=== PATIENT | female | born 1935 | race Two or more races ===

== ENCOUNTER → 2016-05-20 | Outpatient (CLI) | payer OTHER ==
[~2016-05-20] MED LIST: ACETAMINOPHEN 325 MG TAB ONE; diphenhydrAMINE 25 MG CAP PO ONE
[2016-05-20 10:59] LABS: % IMMATURE GRANULOCYTES 1.6 % (0.0-1.1); ABSOLUTE IMMATURE GRANULOCYTES 0.03 10^3/uL (0-0.10); HEMATOCRIT 21.3 % (38.0-47.0); HEMOGLOBIN 6.9 g/dL (12.6-16.3); MEAN CELL HEMOGLOBIN 33.5 pg (27.9-34.1); MEAN CELL HEMOGLOBIN CONC. 32.4 g/dL (32.4-36.7); MEAN CELL VOLUME 103.4 fL (81.5-99.8); MEAN PLATELET VOLUME 10.6 fL (8.7-11.7); RED BLOOD CELL COUNT 2.06 10^6/uL (4.18-5.33); RED CELL DISTRIBUTION WIDTH 15.4 % (11.5-15.2)
[2016-05-20 11:42] LABS: ALANINE AMINOTRANSFERASE 21 IU/L (9-52); ALBUMIN 3.4 g/dL (3.5-5.0); ALKALINE PHOSPHATASE 80 IU/L (38-126); ANION GAP 10 mEq/L (8-16); ASPARTATE AMINOTRANSFERASE 22 IU/L (14-46); BILIRUBIN,TOTAL 0.5 mg/dL (0.1-1.4); CALCIUM 8.8 mg/dL (8.5-10.4); CARBON DIOXIDE 25 mEq/l (22-31); CHLORIDE 105 mEq/L (97-110); CREATININE 0.9 mg/dL (0.6-1.0); GLOMERULAR FILTRATION RATE > 60; GLUCOSE 128 mg/dL (70-100); POTASSIUM 3.9 mEq/L (3.5-5.2); SODIUM 140 mEq/L (134-144); TOTAL PROTEIN 6.7 g/dL (6.3-8.2)
[2016-05-20] MEDS: ACETAMINOPHEN 325 MG TAB PO ONE (14:40)
[2016-05-20] MEDS: diphenhydrAMINE 25 MG CAP PO ONE (14:40)
== END ==
LOC: RMCCLAB 07:31 → EDSTATUS 14:13 → F1NOP 14:15
PROVIDERS: ATTEND Internal Medicine Hematology & Oncology
PROC: 30233N1 Transfusion of Nonautologous Red Blood Cells into Peripheral Vein, Percutaneous Approach (ICD-10-PCS; principal; 2016-05-20)
DX: C56.9 Malignant neoplasm of unspecified ovary (principal)
CPT/HCPCS: 36430; P9021

== ENCOUNTER → 2016-06-14 | Day surgery (SDC) | payer OTHER ==
[~2016-06-14] MED LIST changes: -ACETAMINOPHEN 325 MG TAB ONE; +ALTEPLASE 2 MG VIAL IVP ONE; -diphenhydrAMINE 25 MG CAP PO ONE
== END | disposition home or self-care (01) ==
LOC: FOBOP 09:21
PROVIDERS: ATTEND Internal Medicine Hematology & Oncology
PROC: 30233N1 Transfusion of Nonautologous Red Blood Cells into Peripheral Vein, Percutaneous Approach (ICD-10-PCS; principal; 2016-06-14)
DX: C56.9 Malignant neoplasm of unspecified ovary (principal); D50.9 Iron deficiency anemia, unspecified
CPT/HCPCS: 36430; P9016; J1642; J2997

== ENCOUNTER 2016-07-19 11:56 | Day surgery (SDC) | payer OTHER ==
[~2016-07-19 11:56] MED LIST changes: +ACETAMINOPHEN 325 MG TAB PO ONE; -ALTEPLASE 2 MG VIAL IVP ONE
[2016-07-19] MEDS ORDERED: ACETAMINOPHEN 325 MG TAB ONE (12:13)
== END 2016-07-19 15:45 | disposition home or self-care (01) ==
LOC: FOBOP 11:56
PROVIDERS: ATTEND Internal Medicine Hematology & Oncology
PROC: 30233N1 Transfusion of Nonautologous Red Blood Cells into Peripheral Vein, Percutaneous Approach (ICD-10-PCS; principal; 2016-07-19)
DX: C56.1 Malignant neoplasm of right ovary (principal)
CPT/HCPCS: 36430; P9021; J1200; J1642

== ENCOUNTER → 2016-10-11 | Outpatient (CLI) | payer OTHER | LOC: EDSTATUS 07:30 → FOBOP 10:20 | PROVIDERS: ATTEND Internal Medicine Hematology & Oncology | PROC: 30233N1 Transfusion of Nonautologous Red Blood Cells into Peripheral Vein, Percutaneous Approach (ICD-10-PCS; principal; 2016-10-11) | DX: C56.9 Malignant neoplasm of unspecified ovary (principal) | CPT/HCPCS: 36430; P9016; J1200; J1642 ==

== ENCOUNTER 2017-10-30 18:59 | Emergency (ER) | payer OTHER ==
--- NOTE | 2017-10-30 19:24 | EDPHY ---
H & P Stated Complaint: abd pain Time Seen by Provider: 10/30/17 19:24 - Personal History Current Tetanus/Diphtheria Vaccine: Unsure - Medical/Surgical History Hx Asthma: No Hx Chronic Respiratory Disease: No Hx Diabetes: Yes Hx Cardiac Disease: No Hx Renal Disease: No Hx Cirrhosis: No Hx Alcoholism: No Hx HIV/AIDS: No Hx Splenectomy or Spleen Trauma: No Other PMH: Ovarian Cancer, hypertension, Type II diabetes, - Social History Smoking Status: Never smoked Constitutional: Initial Vital Signs Temperature (C) 37.1 C 10/30/17 19:02 Heart Rate 93 10/30/17 19:02 Respiratory Rate 20 10/30/17 19:02 Blood Pressure 175/102 H 10/30/17 19:02 O2 Sat (%) 93 10/30/17 19:02 O2 Delivery Mode Room Air Allergies/Adverse Reactions: No Known Allergies Allergy (Verified 10/30/17 19:04) Home Medications: Medication Instructions Recorded Carvedilol [Coreg (RX)] 25 mg PO DAILY 07/11/12 metFORMIN HCL [Glucophage 500 mg 500 mg PO DAILY 07/11/12 (RX)] oxyCODONE/APAP 5/325 [Percocet 5 mg PO Q4-6PRN PRN #15 tab NS 07/11/12 5/325] Medical Decision Making ED Course/Re-evaluation: CHIEF COMPLAINT: Told she has a bowel obstruction HISTORY OF PRESENT ILLNESS: 82-year-old female with ovarian cancer. On September 29 approximately 1 month ago this patient presented with an ileus that they did not think was an obstruction at the time. She was placed on a clear liquid and soft diet and it resolved spontaneously. This past Friday this patient started developed bloating and abdominal pain and nausea again. She is not passing gas nor she having bowel movement today. She presented over to [facility] where they gave her fluids for hydration purposes and decided to do a CT scan. The family was called back later and told that the CT scan showed a bowel obstruction. I am trying to locate the CT scan now. Patient is still nauseated but not into around this pain. REVIEW OF SYSTEMS: A comprehensive 10 system review of systems is otherwise negative aside from elements mentioned in the history of present illness and medical decision making. PHYSICAL EXAM: HR, BP, O2 Sat, RR. Temp noted General Appearance: Alert, well hydrated, appropriate, and non-toxic appearing. Head: Atraumatic without scalp tenderness or obvious injury Eyes: Pupils equal, round, reactive to light and accommodation, EOMI, no trauma , no injection. Ears: Clear bilaterally, no perforation, normal landmarks Nose: Atraumatic, no rhinorrhea, clear. Throat: There is no erythema or exudates, no lesions, normal tonsils, mucus membranes moist. Neck: Supple, 2+ carotid upstroke, nontender, no lymphadenopathy. Respiratory: No retractions, no distress, no wheezes, and no accessory muscle use. Lungs are clear to auscultation bilaterally. Cardiovascular: Regular rate and rhythm, no murmurs, rubs, or gallops. Bilateral carotid, radial, dorsalis pedis, and posterior tibial pulses intact. Good capillary refill all extremities. Gastrointestinal: Abdomen is soft, nontender, non-distended, no masses, no rebound, no guarding, no peritoneal signs. Musculoskeletal: Normal active ROM of all extremities, atraumatic. Neurological: Alert, appropriate, and interactive. The patient has normal DTRs and non-focal cranial nerves, motor, sensory, and cerebellar exam. Skin: No rashes, good turgor, no nodules on palpation. Past medical history: Ovarian cancer Past surgical history: Noncontributory Family history: Noncontributory Social history: , retired, does not abuse tobacco drugs or alcohol, family in the room DIAGNOSTICS/PROCEDURES/CRITICAL CARE TIME: CT scan from [facility] is currently trying to be obtained which apparently shows a bowel obstruction but I need to confirm that DIFFERENTIAL DIAGNOSIS: The differential diagnosis for the patient's abdominal pain included but was not limited to ovarian cyst, pelvic inflammatory disease, ovarian torsion, urinary tract infection, ectopic , cholecystitis, and appendicitis. MEDICAL DECISION MAKING: This patient has been told she has a bowel obstruction secondary to her ovarian cancer. She presented in a similar fashion about a month ago however it resolved spontaneously. I am tracking on CT scan. I am performing laboratory studies. The patient is comfortable and I am giving her some antiemetics. Also gave her some IV fluids. As soon as I can look at CT scan I will discuss the case with surgery. Consulted with Dr. Geiger, general surgeon. Plan to place NG tube and admit patient to the hospital. CT scan results still pending. 19:[address] De Jesus, hospitalist. He accepts admission for bowel obstruction. Dr. Geiger will continue to consult. 20:[address] Geiger. The patient's obstruction is chronic and she does not need to be admitted at this time. The patient would like to be discharged home and follow up outpatient. Dr. Geiger is comfortable with this plan. She will follow up with her oncologist, Dr Fang, as scheduled. Plan to discharge home in good condition. Return precautions discussed. She is comfortable with this plan. Departure - Departure Disposition: Home, Routine, Self-Care Clinical Impression: Bowel obstruction Qualifiers: Intestinal obstruction type: unspecified Intestinal obstruction extent: unspecified extent Qualified Code(s): K56.609 - Unspecified intestinal obstruction, unspecified as to partial versus complete obstruction Ovarian cancer Qualifiers: Laterality: unspecified laterality Qualified Code(s): C56.9 - Malignant neoplasm of unspecified ovary Condition: Good
[2017-10-30] MEDS ORDERED: NS 1,000 ML IV ONE (19:30)
[2017-10-30] MEDS ORDERED: LIDOCAINE/PRILOCAINE 1 EACH CRTUBE TP ONE (19:38)
[2017-10-30 20:31] VITALS: BP 166/93
--- NOTE | 2017-10-30 20:48 | GCON ---
DATE OF CONSULTATION: 10/30/2017 REASON FOR EVALUATION: Bowel obstruction. 82-year-old female with a history of chronic progressive metastatic ovarian cancer. She has been on multiple courses of adjuvant therapy and has rising CA- 125 levels. She developed signs of early obstruction beginning back September 29. She initially had been managed outpatient with clear liquids followed by soft foods and then more recently she has been trying to advance her diet. She felt that on Friday symptoms worsened at home with more distention. She had been having regular liquidy bowel movements. She denies emesis. She has been occasionally nauseated. She uses Tylenol for crampy abdominal pain as well as Bentyl. She reports over the last 24 hours that her symptoms have been improving. She did present to her nurse practitioner at [facility] today where a CT scan was performed showing evidence of progressive colonic obstruction. The patient was told that should her symptoms worsen, she should present to the emergency room. Family presented in efforts of being proactive. Surgery has been requested for further recommendations. The patient reports that she is generally feeling better today than she has for the last few days. She is otherwise without any complaints other than the above. PAST MEDICAL HISTORY: Diabetes, hypertension, metastatic ovarian cancer. PAST SURGICAL HISTORY: Staging laparotomy in 2013, right internal jugular port placement. MEDICATIONS: Metformin, Coreg, Tylenol p.r.n., Bentyl p.r.n. No known drug allergies. SOCIAL HISTORY: No alcohol, no tobacco. She is . She is bedside with her 2 daughters. PHYSICAL EXAM: Temperature 37, blood pressure 170/100, heart rate 93, respirations 20. The patient is alert, appropriate, comfortable at present time. Anicteric. No cervical lymphadenopathy. HEART: Regular. LUNGS: Clear. Right chest wall port secure. ABDOMEN: Distended and doughy in appearance. No fluid waves. No succussion splash. EXTREMITIES: Unremarkable. NEUROLOGIC: Unremarkable. No current labs available. CT images from [facility] were directly reviewed on PACS with the radiologist on- call. Distal colonic obstruction, possible distal small bowel obstruction. Areas of diffuse carcinomatosis present including areas of abdominal wall/ rectus nodularity. IMPRESSION: Metastatic ovarian cancer with chronic progressive large and possibly small bowel obstructions. The patient is currently comfortable. She has been receiving regular fluid hydration at [facility] - most recently prior to arrival here. She has been offered an appointment for tomorrow, which she would prefer to keep rather than being admitted for overnight observation as her clinical course is not deteriorating and has not deteriorated over the last couple days. Additional treatment options are dependent upon next round chemotherapy choices. Consideration for colonic stenting may be an option to help with her distal colon obstruction versus palliative care options if she has exhausted her traditional therapeutic means. These findings and recommendations were discussed at length with the patient and family in detail. I spoke with Dr. Fang after our visit who will see her tomorrow in follow-up. /[id number]/MODL MTDD
== END 2017-10-30 20:31 | disposition home or self-care (01) ==
LOC: UNDOADMIN 19:46
DX: K56.609 Unspecified intestinal obstruction, unspecified as to partial versus complete obstruction (principal); C56.9 Malignant neoplasm of unspecified ovary

== ENCOUNTER 2017-11-10 13:18 | Inpatient (IN) | payer OTHER ==
[2017-11-10] MEDS ORDERED: LR 2,000 ML IV ONE (13:35)
--- NOTE | 2017-11-10 13:45 | EDPHY ---
H & P Stated Complaint: lethragy Time Seen by Provider: 11/10/17 13:31 HPI/ROS: CHIEF COMPLAINT: A lethargy, dehydration HISTORY OF PRESENT ILLNESS: The patient is a 82-year-old female who is brought to the emergency department via EMS and her family. She has a history of ovarian cancer and her chemotherapy regimen intensified last week. She had chemotherapy every day last week which was new for her. She also had Neulasta on Friday. She has felt weak and tired ever since then her last injection. She had a low-grade fever of 100.5 last night that the oncology service told family was likely due to the Neulasta. She got up to go to the bathroom 4:00 a.m. Today and was able to ambulate but made a comment to her daughter that she is peeing more frequently. Her daughter asked if she thought she had a urinary tract infection and she said no. She has not had any vomiting. She also has mild chronic abdominal pain from her ovarian cancer but has also had 2 [address] scans in the last 2 months that have bed read as ileus versus early small-bowel obstruction. She has had diarrhea for about the last month and was incontinent today of stool which is what prompted the call to EMS. No blood in her stool. She has not been on any antibiotics recently. Her daughter thinks that she is mostly dehydrated and worn out from the chemotherapy. Her last dose of Percocet was early this morning around 5:00 a.m.. No respiratory complaints. No headache Severity: Moderate Modifying factors: Hydration REVIEW OF SYSTEMS: Constitutional: See HPI EENTM: denies: blurred vision, double vision, nose congestion Respiratory: denies: cough, shortness of breath Cardiac: denies: chest pain, irregular heart rate, lightheadedness, palpitations Gastrointestinal/Abdominal: See HPI Genitourinary: See HPI Musculoskeletal: denies: joint pain, muscle pain Skin: denies: lesions, rash, jaundice, bruising Neurological: denies: headache, numbness, paresthesia, tingling, dizziness, weakness Hematologic/Lymphatic: denies: blood clots, easy bleeding, easy bruising Immunologic/allergic: denies: HIV/AIDS, transplant 10 systems reviewed and negative except as noted EXAM: GENERAL: The sleeping, arousable but lethargic HEAD: Atraumatic, normocephalic. EYES: Pupils equal round and reactive to light, extraocular movements intact, sclera anicteric, conjunctiva are normal. ENT: TMs normal, nares patent, oropharynx clear without exudates. Moist mucous membranes. NECK: Normal range of motion, supple without lymphadenopathy or JVD. LUNGS: Patient does have a small amount of erythema and some skin sloughing over her port. Family states that this is from multiple recent accesses. Breath sounds clear to auscultation bilaterally and equal. No wheezes rales or rhonchi. HEART: Slightly tachycardic, Regular rhythm without murmurs, rubs or gallops. ABDOMEN: Soft, nontender, normoactive bowel sounds. No guarding, no rebound. No masses appreciated. BACK: No CVA tenderness, no spinal tenderness, step-offs or deformities EXTREMITIES: Normal range of motion, 1+ edema which family states is baseline. No clubbing or cyanosis. NEUROLOGICAL: Cranial nerves II through XII grossly intact. Normal speech, normal gait. 5/5 strength, normal movement in all extremities, normal sensation , normal reflexes PSYCH: Normal mood, normal affect. SKIN: Warm, dry, normal turgor, no visible rashes or lesions. Source: Patient Exam Limitations: No limitations - Personal History Current Tetanus Diphtheria and Acellular Pertussis (TDAP): Unsure - Medical/Surgical History Hx Asthma: No Hx Chronic Respiratory Disease: No Hx Diabetes: Yes Hx Cardiac Disease: No Hx Renal Disease: No Hx Cirrhosis: No Hx Alcoholism: No Hx HIV/AIDS: No Hx Splenectomy or Spleen Trauma: No Other PMH: Ovarian Cancer, hypertension, Type II diabetes, - Family History Significant Family History: No pertinent family hx - Social History Smoking Status: Never smoked Alcohol Use: Sober Drug Use: None Constitutional: Initial Vital Signs Temperature (C) 37.3 C 11/10/17 13:28 Heart Rate 106 H 11/10/17 13:28 Respiratory Rate 16 11/10/17 13:28 Blood Pressure 142/95 H 11/10/17 13:28 O2 Sat (%) 90 L 11/10/17 13:28 O2 Delivery Mode Room Air Allergies/Adverse Reactions: No Known Allergies Allergy (Verified 10/30/17 19:04) Home Medications: Medication Instructions Recorded Herbals/Supplements -Info Only 1 ea PO DAILY 09/17/18 Ondansetron Odt [Zofran Odt 4 mg 4 mg PO Q4HRS PRN #30 tab 11/12/17 (*)] morphINE [Roxanol 10 mg/0.5 ml 5 - 10 mg PO Q4 #60 ml 11/12/17 oral soln (*)] Medical Decision Making - Diagnostics Imaging: Discussed imaging studies w/ order caller Radiologist ED Course/Re-evaluation: The patient has a port in her right chest. There is a small amount of erythema and some skin sloughing. It is hard to tell but I think this is more from repeated use rather than infection. I do not think a swab would be beneficial. We will avoid the port at this time. We will cover with ointment and bandages. 3:00 p.m. the patient meets criteria for sepsis but not severe sepsis. Source seems to be the urine. I discussed with medical service who recommends cefepime and will admit. Differential Diagnosis: Partial list of the Differential diagnosis considered include but were not limited to; medication reaction, sepsis, severe sepsis, urinary tract infection , and although unlikely based on the history and physical exam, I also considered pneumonia, meningitis. Critical Care Time: Critical care time spent by me, Dr. Hernandez exclusive with this patient was 45 minutes, exclusive of the PA time exclusive of procedures. The organ system that was at risk was cardiovascular and I gave IV fluids, antibiotics, consultation and admission to prevent worsening of the patient's condition - Data Points Laboratory Results: Laboratory Results 11/10/17 13:30 11/10/17 13:30 Microbiology Results: MICROBIOLOGY 11/10/17 14:40 Unspecified Urine Culture - Preliminary Escherichia Coli Pseudomonas Aeruginosa Three Comfort Types 11/10/17 14:30 Blood Blood Culture - Preliminary Klebsiella Pneumoniae 11/10/17 14:30 Blood Blood Panel (PCR) - Final Enterobacteriaceae Group 11/10/17 14:05 Blood Blood Culture - Preliminary Bacillus Species 11/10/17 14:05 Blood Blood Panel (PCR) - Final No Organism Detected Medications Given: Acetaminophen (Tylenol 650/20.3ml Oral Liquid) 650 mg PO Q4HRS PRN PRN Reason: fever greater than 38 deg C Stop: 05/10/18 17:17 Last Admin: 11/11/17 19:49 Dose: 650 mg Diphenhydramine HCl (Benadryl Oral Liquid) 12.5 mg PO HS PRN PRN Reason: Sleep/Insomnia Stop: 05/09/18 21:06 Last Admin: 11/11/17 21:45 Dose: 12.5 mg Hydromorphone HCl (Dilaudid) 0.2 mg IVP Q2HRS PRN PRN Reason: Pain, Severe Unable to Take PO Stop: 11/20/17 20:12 Last Admin: 11/12/17 15:58 Dose: 0.2 mg Sodium Chloride (Ns) 1,000 mls @ 75 mls/hr IV CONT WILY Stop: 05/09/18 21:14 Last Admin: 11/13/17 02:40 Dose: 1,000 mls Piperacillin/Tazobactam/Dextrose (Zosyn 3.375 Gm (Premix)) 50 mls @ 100 mls/hr IV Q6H WILY PRN Reason: Protocol Stop: 12/12/17 19:59 Last Admin: 11/13/17 02:38 Dose: 50 mls Lorazepam (Ativan Injection) 1 mg IVP Q4HRS PRN PRN Reason: Anxiety, Unable to Take PO Stop: 05/12/18 00:30 Last Admin: 11/13/17 00:39 Dose: 1 mg Morphine Sulfate (Roxanol Oral Solution) 5 - 10 mg PO Q4 PRN PRN Reason: Pain, Severe Stop: 11/22/17 17:08 Last Admin: 11/12/17 23:41 Dose: 5 mg Ondansetron HCl (Zofran) 4 mg IVP Q4HRS PRN PRN Reason: Nausea/Vomiting, Can't Take PO Stop: 05/09/18 15:36 Last Admin: 11/12/17 09:30 Dose: 4 mg Senna/Docusate Sodium (Senokot-S) 1 - 2 tab PO BID WILY PRN Reason: Protocol Stop: 05/10/18 20:59 Last Admin: 11/12/17 20:12 Dose: Not Given Discontinued Medications Acetaminophen (Tylenol) 650 mg PO Q4HRS PRN PRN Reason: fever greater than 38 deg C Stop: 05/09/18 15:34 Last Admin: 11/10/17 21:10 Dose: 650 mg Lactated Ringer's (Lr) 2,000 mls @ 4,000 mls/hr 30 ml/kg infuse over 30 min ( 2000 ml) IV EDNOW ONE PRN Reason: Protocol Stop: 11/10/17 14:04 Last Admin: 11/10/17 13:44 Dose: 2,000 mls Cefepime HCl 1 gm/ Sodium (Chloride) 50 mls @ 100 mls/hr IV EDNOW ONE PRN Reason: Protocol Stop: 11/10/17 15:28 Last Admin: 11/10/17 15:45 Dose: 50 mls Cefepime HCl 2 gm/ Sodium (Chloride) 100 mls @ 200 mls/hr IV Q12H WILY PRN Reason: Protocol Stop: 12/11/17 02:59 Last Admin: 11/11/17 02:24 Dose: 100 mls Vancomycin/Sodium Chloride (Vancomycin 1 Gm (Premix)) 250 mls @ 250 mls/hr IV Q12H [facility] Stop: 12/10/17 17:59 Last Admin: 11/11/17 06:10 Dose: 250 mls Piperacillin/Tazobactam/Dextrose (Zosyn 3.375 Gm (Premix)) 50 mls @ 100 mls/hr IV Q6HRS WILY PRN Reason: Protocol Stop: 12/11/17 11:59 Last Admin: 11/12/17 13:41 Dose: 50 mls Potassium Chloride (Potassium Cl 10 Meq (Premix)) 100 mls @ 100 mls/hr IV Q1H [facility] Stop: 11/12/17 12:59 Last Admin: 11/12/17 12:40 Dose: 100 mls Lidocaine (Lidocaine 2% Jelly) 1 tank TP ONCE ONE Stop: 11/12/17 15:04 Last Admin: 11/12/17 15:19 Dose: 1 tank Metformin HCl (Glucophage) 500 mg PO DAILY [facility] Stop: 05/10/18 08:59 Last Admin: 11/12/17 08:59 Dose: Not Given Oxycodone HCl (Oxycodone Ir) 5 mg PO Q4HRS PRN PRN Reason: Pain, Severe Able to Take PO Stop: 11/20/17 21:07 Last Admin: 11/12/17 13:57 Dose: 5 mg Departure - Departure Disposition: [facility] Acute Clinical Impression: Urinary tract infection Qualifiers: Urinary tract infection type: acute cystitis Hematuria presence: without hematuria Qualified Code(s): N30.00 - Acute cystitis without hematuria Sepsis Qualifiers: Sepsis type: sepsis due to unspecified organism Qualified Code(s): A41.9 - Sepsis, unspecified organism Condition: Fair
[2017-11-10 13:57] LABS: INR 1.01 (0.83-1.16); PROTIME(PATIENT) 13.5 SEC (12.0-15.0)
[2017-11-10 14:33] LABS: PLATELET COUNT 71 10^3/uL (150-400)
[2017-11-10] MEDS ORDERED: CEFEPIME HCL 1 GM in NS 50 ML IV ONE (14:59)
[2017-11-10] MEDS ORDERED: ONDANSETRON DISINTEGRATING 4 MG TAB PO PRN (15:37)
[2017-11-10] MEDS: ACETAMINOPHEN 325 MG TAB PO PRN ×2 (15:49→21:10)
[2017-11-10] MEDS: VANCOMYCIN HCL/NORMAL SALINE 250 ML IV SCH (18:38)
[2017-11-10] MEDS: HYDROmorphone HCL 0.5 MG/0.5 ML SYR IVP PRN ×2 (20:23→23:23)
[2017-11-10] MEDS: ONDANSETRON 4 MG/2 ML VIAL IVP PRN (20:23)
--- NOTE | 2017-11-10 20:47 | PDGENHP ---
History and Physical - Chief Complaint fever - History of Present Illness 82yo F with metastatic ovarian cancer currently on chemotherapy who presents from home with fever and chills. Per family, who is at bedside, patient recently started new chemotherapy regimen about 1.[address] Fang. Had infusion on Friday that went well. Recieved G-CSF on Friday and ever since then has not felt well with chills, fatigue, and lower abdominal pain. Developed fever to 100.5 today so decided to come to ED. She denies any dyspnea , cough, rashes, nausea/vomiting. She has noticed a few oral lesions that are new. She had an episode of loose, non-bloody stool prior to coming in today. She reports some urinary frequency but no dysuria or hematuria. Additionally, the family has notes that her chest port is a bit more red than usual. Of note, she was seen in this ED on 10/30 for worsening abdominal distention and was found to have partial large and possibly small bowel obstructions. Dr Yoandy Geiger was consulted and this was managed conservatively in the outpatient setting. Per family, she has been mostly on a liquid diet ever since. In the ED, she was found to have a temperature of 38.5 and be tachycardic. Her WBC was 0.24. She was given cefepime and IVF and is being admitted for neutropenic fever. Case discussed with ED physician Raz Hernandez. History Information - Allergies/Home Medication List Allergies/Adverse Reactions: No Known Allergies Allergy (Verified 10/30/17 19:04) Home Medications: Carvedilol [Coreg (RX)] 12.5 mg PO DAILY MDD LAST FILLED 03/1307/11/12 [Last Taken 2 Days Ago ~06/12/16] metFORMIN HCL [Glucophage 500 mg (RX)] 500 mg PO DAILY MDD not refilled recently 07/11/12 [Last Taken 2 Days Ago ~06/12/16] Acetaminophen [Tylenol ES 500 mg (*)] 1,000 mg PO TID PRN 11/10/17 [Last Taken Unknown] Herbals/Supplements -Info Only 1 ea PO DAILY 11/10/17 [Last Taken Unknown] diphenhydrAMINE [Benadryl 12.5MG/5ML Oral Liquid (*)] 12.5 mg PO HS PRN [Last Taken Unknown] I have personally reviewed and updated: family history, medical history, social history, surgical history - Past Medical History Additional medical history: metatstic ovarian cancer with peritoneal carcinomatosis, diabetes, HTN - Surgical History Additional surgical history: staging laparotomy in 2014, R IJ port placement - Family History Additional family history: no h/o ovarian cancer - Social History Smoking Status: Never smoked Alcohol Use: None Drug Use: None Additional social history: lives with and daughter Review of Systems Review of Systems: ROS: 10pt was reviewed & negative except for what was stated in HPI & below Physical Exam Physical Exam: Temp Pulse Resp BP Pulse Ox 36.9 C 97 17 149/79 H 97 11/10/17 19:56 11/10/17 19:56 11/10/17 19:56 11/10/17 19:56 11/10/17 19:56 O2 (L/minute) 2 Constitutional: no apparent distress, appears nourished, not in pain Eyes: PERRL, anicteric sclera, EOMI Ears, Nose, Mouth, Throat: moist mucous membranes, other (ulcer over left buccal mucosa), No oral thrush Cardiovascular: no murmur, rub, or gallop, tachycardia, No JVD, No edema Respiratory: no respiratory distress, no rales or rhonchi, clear to auscultation Gastrointestinal: normoactive bowel sounds, distension, No tenderness, No guarding, No rebound Genitourinary: no bladder fullness, no bladder tenderness Skin: warm, other (Right chest port with surrounding erythema, non-tender, no induration or drainage) Neurologic: AAOx3 Psychiatric: interacting appropriately, not anxious, not encephalopathic, thought process linear Lab Data & Imaging Review 11/10/17 13:30 11/10/17 13:30 WBC 0.24 10^3/uL (3.80-9.50) L* 11/10/17 13:30 RBC 3.58 10^6/uL (4.18-5.33) L 11/10/17 13:30 Hgb 11.8 g/dL (12.6-16.3) L 11/10/17 13:30 Hct 34.6 % (38.0-47.0) L 11/10/17 13:30 MCV 96.6 fL (81.5-99.8) 11/10/17 13:30 MCH 33.0 pg (27.9-34.1) 11/10/17 13:30 MCHC 34.1 g/dL (32.4-36.7) 11/10/17 13:30 RDW 15.5 % (11.5-15.2) H 11/10/17 13:30 Plt Count 71 10^3/uL (150-400) L 11/10/17 13:30 MPV 10.3 fL (8.7-11.7) 11/10/17 13:30 Neut % (Auto) Not Reported 11/10/17 13:30 Lymph % (Auto) Not Reported 11/10/17 13:30 [place] % (Auto) Not Reported 11/10/17 13:30 Eos % (Auto) Not Reported 11/10/17 13:30 Baso % (Auto) Not Reported 11/10/17 13:30 Nucleat RBC Rel Count Not Reported 11/10/17 13:30 Absolute Neuts (auto) Not Reported 11/10/17 13:30 Absolute Lymphs (auto) Not Reported 11/10/17 13:30 Absolute Monos (auto) Not Reported 11/10/17 13:30 Absolute Eos (auto) Not Reported 11/10/17 13:30 Absolute Basos (auto) Not Reported 11/10/17 13:30 Absolute Nucleated RBC Not Reported 11/10/17 13:30 Immature Gran % Not Reported 11/10/17 13:30 Band Neutrophils % 2.1 % 11/10/17 13:30 Lymphocytes % 97.9 % 11/10/17 13:30 Immature Gran # Not Reported 11/10/17 13:30 Absolute Band Neuts 0.01 10^3/uL (0.00-0.70) 11/10/17 13:30 Absolute Lymphocytes 0.23 10^3/uL (1.00-3.00) L 11/10/17 13:30 Platelet Estimate DECREASED (ADEQ) L 11/10/17 13:30 Smear Review By Tone LO MD 11/10/17 13:30 PT 13.5 SEC (12.0-15.0) 11/10/17 13:30 INR 1.01 (0.83-1.16) 11/10/17 13:30 APTT 27.9 SEC (23.0-38.0) 11/10/17 13:30 VBG Lactic Acid 1.2 mmol/L (0.7-2.1) 11/10/17 14:05 Sodium 131 mEq/L (135-145) L 11/10/17 13:30 Potassium 3.7 mEq/L (3.3-5.0) 11/10/17 13:30 Chloride 95 mEq/L (97-110) L 11/10/17 13:30 Carbon Dioxide 27 mEq/l (22-31) 11/10/17 13:30 Anion Gap 9 mEq/L (8-16) 11/10/17 13:30 BUN 26 mg/dL (7-23) H 11/10/17 13:30 Creatinine 0.8 mg/dL (0.6-1.0) 11/10/17 13:30 Estimated GFR > 60 11/10/17 13:30 Glucose 177 mg/dL (70-100) H 11/10/17 13:30 Calcium 8.2 mg/dL (8.5-10.4) L 11/10/17 13:30 Ionized Calcium 1.10 MMOL/L (1.12-1.30) L 11/10/17 14:30 Total Bilirubin 1.3 mg/dL (0.1-1.4) 11/10/17 13:30 Urine Color ROBIN 11/10/17 14:40 Urine Appearance MODERATELY TURBID 11/10/17 14:40 Urine pH 5.0 (5.0-7.5) 11/10/17 14:40 Ur Specific [place] 1.023 (1.002-1.030) 11/10/17 14:40 Urine Protein 1+ (NEGATIVE) H 11/10/17 14:40 Urine Ketones 1+ (NEGATIVE) H 11/10/17 14:40 Urine Blood 2+ (NEGATIVE) H 11/10/17 14:40 Urine Nitrate NEGATIVE (NEGATIVE) 11/10/17 14:40 Urine Bilirubin NEGATIVE (NEGATIVE) 11/10/17 14:40 Urine Urobilinogen 4.0 EU (0.2-1.0) H 11/10/17 14:40 Ur Leukocyte Esterase 2+ (NEGATIVE) H 11/10/17 14:40 Urine RBC 25-50 /hpf (0-3) H 11/10/17 14:40 Urine WBC 15-25 /hpf (0-3) H 11/10/17 14:40 Ur Epithelial Cells TRACE /lpf (NONE-1+) 11/10/17 14:40 Urine Bacteria 4+ /hpf (NONE SEEN) H 11/10/17 14:40 Urine Mucus TRACE /lpf (NONE-1+) 11/10/17 14:40 Urine Glucose 1+ (NEGATIVE) H 11/10/17 14:40 Assessment & Plan Assessment: 82yo F with metastatic ovarian cancer currently on chemotherapy complicated by partial bowel obstruction presents with 2 days of chills found to have neutropenic fever. Plan: #Neutropenic fever: Mild sepsis physiology on arrival but clinically stable. Multiple possible sources including urinary (mild symptoms and infected appearing UA), pulmonary with mild hypoxia, gut translocation, bacterial peritonitis, mucositis, port. - Cover with cefepime and vancomycin (trough goal 15-20) - Follow blood, urine cultures - CXR, GI PCR pending - ID consultation in AM - Consider paracentesis although relatively small amount of ascites on imaging #Pancytopenia: Due to chemo. - Monitor counts daily, no need for transfusion at moment #Partial bowel obstruction: Again re-demonstrated on CT. She had BM this morning. She appears comfortable. - Monitor abdominal exam - Dr Geiger consulted last week in ED. He would consider colonic stenting pending her clinical trajectory #Hyponatremia: Acute but mild. Likely d/t poor PO intake. - Isotonic fluid and recheck in AM. #Metastatic ovarian cancer: With peritoneal carcinomatosis. She has had multiple courses of neoadjuvant chemo. Despite this, she has had progressive disease and rising CA-125 levels. - Alert Dr Fang to admission - Palliative care would be helpful. Didn't discuss this with patient/family yet #HTN: Chronic. - Holding home coreg with her sepsis physiology #Diabetes: - Continue home metformin Diet: regular VTE ppx: high risk, SCDs while thrombocytopenic Code: full, per discussion with patient and family tonight Dispo: Admit as inpatient given expected stay >2 midnights.
[2017-11-10] MEDS: oxyCODONE IR 5 MG TAB PO PRN (21:19)
[2017-11-10] MEDS: diphenhydrAMINE 12.5 MG/5 ML UDCUP PO PRN (23:21)
[2017-11-10] MEDS: NS 1,000 ML IV SCH (23:23)
[2017-11-11] MEDS: oxyCODONE IR 5 MG TAB PO PRN ×3 (02:24→19:49)
[2017-11-11] MEDS ORDERED: CEFEPIME HCL 2 GM in NS 100 ML IV SCH (03:00)
[2017-11-11 05:03] LABS: PLATELET COUNT 35 10^3/uL (150-400)
[2017-11-11] MEDS: VANCOMYCIN HCL/NORMAL SALINE 250 ML IV SCH (06:10)
--- NOTE | 2017-11-11 08:12 | PDMN ---
Medical Necessity Medical necessity: [facility] [place] [place]- 82 yr old with Neutopenic fever with mild sepsis, mild hypoxia, ( 2L) , bacterial peritonitis, mucositis, prob UTI, partial bowel obstruction on CT, hyponatremia, in pt with met. ovarian Ca with peritoneal carcinomatosis, currently on chemo. pt also with DM, anticipate > 2 MN ongoing med nec care, further eval and tx.
[2017-11-11] MEDS ORDERED: ENOXAPARIN 40 MG/0.4 ML SYR SC SCH (09:00)
[2017-11-11] MEDS: metFORMIN HCL 500 MG TAB PO SCH (09:00)
--- NOTE | 2017-11-11 09:36 | ASMTCMCOM ---
CM Note CM Note Notes: Chart reviewed. 82 year old female brought into the Ed via EMS with diarrhea and weakness. She has HX of ovarian cancer and recent chemo. Lives with and daughter. Needs to be determined. CM to follow. Plan: TBD Date Signed: 11/11/2017 09:35 AM Electronically Signed By:Roxie Mixon RN
[2017-11-11] MEDS ORDERED: POLYETHYLENE GLYCOL 3350 17 GM PKT PO PRN (11:51)
[2017-11-11] MEDS ORDERED: MAGNESIUM HYDROXIDE 30 ML UDCUP PO PRN (11:51)
[2017-11-11] MEDS ORDERED: BISACODYL 10 MG SUPP PR PRN (11:51)
[2017-11-11] MEDS ORDERED: LACTULOSE 20 GM/30 ML UDCUP PO PRN (11:51)
[2017-11-11] MEDS ORDERED: MEROPENEM 1 GM in NS 100 ML IV SCH (12:00)
--- NOTE | 2017-11-11 12:46 | GCON ---
INFECTIOUS DISEASES CONSULTATION DATE OF CONSULTATION: 11/11/2017 REFERRING PHYSICIAN: Armando Acosta MD REASON FOR CONSULTATION: Neutropenic fever with gram-negative frances bacteremia. HISTORY OF PRESENT ILLNESS: The patient is an 82-year-old female with metastatic ovarian cancer, rec ently complicated by partial large and small bowel obstruction, treated conservatively, whom I am ask ed to see in consultation for neutropenic fever with concomitant gram-negative frances bacteremia. The ryne adam was seen in the emergency department on 10/30/2017 for abdominal distention secondary to parti al large and small bowel obstruction, which was managed conservatively. Patient has been on a liquid diet subsequently. Last week, she began a new chemotherapeutic regimen, including receipt of Neupog en on Friday preceding admission. On Friday/early Friday a.m., she developed fever to 100.5 with c hills. She did not have rigors. She did describe lower abdominal pain. She was unable to get out o f bed Friday morning. She did not have cough, shortness of breath, myalgias, arthralgias, or skin ra sh. She had some nausea without vomiting. Family notes that she has persistent loose stool in assoc iation with her liquid diet and bowel obstruction. She had used her port in the right upper chest fo r her chemotherapy, which was noted to be slightly more erythematous and tender. She was started emp irically on cefepime for neutropenic fever and given a single dose of vancomycin. Blood cultures wer e obtained with 1 set showing gram-negative rods and the other set showing growth of a gram-positive frances from the aerobic bottle. The patient was noted to have significant neutropenia at time of presen tation. No recent travel history. No unusual animal exposures. Given the above findings, I am now asked to assist in her ongoing management. PAST MEDICAL HISTORY: Metastatic ovarian cancer, on chemotherapy as outlined above; hypertension; gl ucose intolerance. PAST SURGICAL HISTORY: Hysterectomy with oophorectomy, port placement. CURRENT MEDICATIONS: Cefepime 2 g IV q.12 hours, vancomycin 1 g IV q.12 hours, metformin 500 mg p.o. daily, Zofran as needed, OxyIR as needed; patient's family notes that she does use probiotics. ALLERGIES: No known drug allergies. SOCIAL HISTORY: Patient does not smoke or drink alcohol. Pet dogs at home. No recent travel. FAMILY HISTORY: Gastrointestinal problems. REVIEW OF SYSTEMS: Outside that noted in the HPI, the remainder of a 10-system review is unremarkabl e. No dysuria. PHYSICAL EXAMINATION: VITAL SIGNS: Temperature maximum 38.5, temperature current 37.5, heart rate 1 02, respiratory rate 16, blood pressure 140/52, oxygen saturation 93% on 2 L. GENERAL: The patient is a cachectic-appearing elderly female; she appears chronically ill but nontoxic. HEENT: There are no scleral icterus, conjunctival injection, or conjunctival petechiae. Oropharynx shows no thrush, with slightly dry mucous membranes. Dentures present on the upper bridge with edentulous lower bridg e. No nasal discharge. No tenderness over the sinuses. NECK: Supple, without palpable lymphadenop athy or thyromegaly. CHEST: Clear to auscultation anterolaterally. Respiratory effort is normal. Mild erythema present, with slightly desquamated skin over port site, but this is nontender, without fluctuance. CARDIOVASCULAR: Tachycardic, without murmurs, gallops, or rubs. ABDOMEN: Soft, mildly tender in the lower quadrants. Bowel sounds are present. No palpable organomegaly. MUSCULOSKELETA L: 1+ lower extremity edema bilaterally. SKIN: No rashes. No stigmata of endocarditis. Skin is w arm and dry to touch. NEUROLOGIC: Patient is alert and interacts appropriately with examiner. Cran ial nerves 2-12 are grossly intact. Sensation is grossly intact. Muscle bulk is decreased throughou t. LYMPHATICS: No cervical or supraclavicular nodes. LABORATORY DATA: White blood cell count 0.2, hematocrit 27.9, platelets 35, neutrophils 2.5%, with a bsolute neutrophil count approximately 0, creatinine 0.6, bilirubin 1.3, venous lactate 1.2, INR 1.0. Urinalysis showing 15-25 white blood cells with 4+ bacteria. Blood cultures with 1 of 2 sets showi ng gram-negative rods with BCID of Enterobacteriaceae not further identified, and the second set show ing a gram-positive frances growing in the aerobic bottle. Urine culture is pending. CT scan of the abd omen and pelvis is reviewed and interpreted by me with Radiology today, showing significant dilatatio n of the ascending and transverse colon, with probable stricture in the sigmoid colon, with adjacent calcified mass. Small bowel edema is also present. The gallbladder also shows edema and surrounding pericholecystic fluid. IMPRESSION: Polymicrobial bacteremia with neutropenic fever and ongoing findings suggesting bowel ob struction: Most likely bacteremia is of intraabdominal etiology with high risk for translocation wit h bowel obstruction and neutropenia. Gallbladder would be other potential source. Gram negative frances is of the Enterobacteriaceae group, but is not identified by BCID, so traditional culture methods wi ll be necessary. Unclear if gram-positive frances represents actual pathogen versus skin contaminant. C lostridium and lactobacillus would both be potential pathogens in this circumstance based on presenta tion with lactobacillus being possible given use of oral probiotics. RECOMMENDATIONS: 1. Zosyn 3.375 g IV q.6 hours as this will provide activity against gram-negative frances and lactobacil danette or Clostridium. 2. Discontinue cefepime. 3. Await blood culture identification and susceptibility of both pathogens. 4. Agree with plans for hospice consultation as clinical prognosis is grave given metastatic ovarian cancer and poor surgical candidate. 5. The clinical findings and plan discussed with the patient, family, Dr. Anne, and Dr. Duarte. 6. Thank you for this consultation. We will continue to follow the patient with you. /[id number]/MODL
[2017-11-11] MEDS: PIPERACILLIN/TAZO 3.375 GM/DEX 50 ML IV SCH ×2 (13:36→18:28)
[2017-11-11] MEDS ORDERED: BACLOFEN 10 MG TAB PO PRN (14:51)
--- NOTE | 2017-11-11 15:01 | HOSPPROG ---
Hospitalist Progress Note Assessment/Plan: #Neutropenic fever: polymicrobial from translocation from SBO or GB. Awaiting ID /sensitivities. Can see Lactobacillus with probiotics. IV Zosyn #Metastatic ovarian cancer: poor prognosis after several lines of treatment. Family agreeable to meeting with hospice #Partial SBO: no N/V, having BM. Followed by Dr. Gegier previously who rec possible colonic stenting. Very poor surgical candidate #Acute abd pain: PRN dilaudid #Hiccups: PRN Baclofen #Sepsis: elevated WBC, tachy and bacteremia. IV abx as above #HTR #Thrombocytopenia: no active bleeding #Hyponatremia, hypovolemic: IVFs #Diet: ADAT #DVt ppx: SCDs #Disp: inpatient admission for IV abx, fluids Additional 25 min spent on advanced planning with family/patient 10:15-10:40; discussing hospice,goals, advance directive Subjective: tired, intractable hiccups Objective: Vital Signs Temp Pulse Resp BP Pulse Ox 37.5 C 102 H 16 140/52 H 93 11/11/17 11:06 11/11/17 11:06 11/11/17 11:06 11/11/17 11:06 11/11/17 11:06 Laboratory Results 11/11/17 04:42 11/11/17 04:42 11/10/17 11/11/17 11/12/17 05:59 05:59 05:59 Intake Total 600 Output Total 400 200 Balance 200 -200 PT 13.5 SEC (12.0-15.0) 11/10/17 13:30 INR 1.01 (0.83-1.16) 11/10/17 13:30 - Time Spent With Patient Time Spent with Patient: greater than 35 minutes Time Spent with Patient: Greater than 35 minutes spent on this patients care, greater than 50% of time spent counseling, educating, and coordinating care regarding the above mentioned plan. - Physical Exam Constitutional: other (ill-appearing) Eyes: PERRL Ears, Nose, Mouth, Throat: moist mucous membranes Cardiovascular: regular rate and rhythym Respiratory: no respiratory distress Gastrointestinal: normoactive bowel sounds, tenderness (diffusely, no guard/ rebound) Genitourinary: no bladder fullness Musculoskeletal: generalized weakness Neurologic: CN II-XII Intact Psychiatric: interacting appropriately ICD10 Worksheet Patient Problems: Problems Problem Status Onset Bowel obstruction Acute Ovarian cancer Acute Sepsis Acute Urinary tract infection Acute
[2017-11-11] MEDS: HYDROmorphone HCL 0.5 MG/0.5 ML SYR IVP PRN ×2 (15:42→21:59)
--- NOTE | 2017-11-11 16:10 | PDCONSULT ---
Glass Technologist Note: Patient is a 82-year-old female with history of recurrent ovarian cancer admitted for neutropenic fever found to have polymicrobial bacteremia. Patient was started on Topotecan on 10/31/2017 she is also received Neulasta on . She reports feeling poorly since after the Neulasta shot. She was in bed most of the days after Neulasta. On Friday the she then began experiencing left lower quadrant abdominal pain. Then November 10, yesterday, patient could not make it to the bathroom on her own had an episode of bowel incontinence and thus decision was made to to go to the emergency room. In the emergency room she was found to be febrile to 38 for heart rate was 104 white blood cell count was 0.24 with an absolute neutrophil count less than 100. Blood cultures were drawn urinalysis was abnormal with pyuria and hematuria. A CT of the abdomen and pelvis showed colonic distention with tethering to a peritoneal metastasis. This CT scan was not much different from a previous CT scan done 10/30/2017 which identified progression of patient's disease after fifth line a olaparib. This CT scan also demonstrated bowel obstruction which was managed as an outpatient. She has mainly been on a liquid diet since that time. She, again, was started on topotecan 10/30/17 as sixth line therapy for recurrent ovarian cancer. Patient reports feeling poorly with generalized weakness fevers and left lower quadrant abdominal pain. Patient's pain is persistent despite oral narcotic pain medicine. Most of history was taken from the electronic medical record given patient's critical illness and decreased ability to be involved in taking of history. Review of systems: Review of systems unable to be obtained secondary to patient's critically ill condition Past medical history: Recurrent ovarian cancer DM HTN Past surgical history: Primary debulking surgery with hysterectomy bilateral salpingo-oophorectomy and omentectomy on 01/07/2014 Port Placement Family history: Noncontributory Social history: No history of alcohol drugs or tobacco Physical examination: Vital Signs reviewed General: Nondistressed toxic appearing ill female HEENT: Pupils are equal round and reactive to light no scleral icterus however conjunctival pallor is appreciated oral mucosa is moist without any evidence of oral pharyngeal lesions Cardiovascular: Tachycardic rate, regular rhythm with a 2 out of 6 systolic murmur best heard at the right upper sternal border and a 3 out of 6 systolic murmur best heard at the apex Chest: Clear to auscultation bilateral posterior lungs clear to percussion Abdomen: Soft diffusely tender more severe so in the left upper and left lower quadrant with rebound tenderness no guarding Extremities: 2+ lower extremity edema pitting bilaterally intact peripheral pulses warm and well perfused Neurologic: Cranial nerves II through XII are grossly intact patient is somnolent but oriented to person place and time Assessment & Plan Assessment: Sepsis (Acute) Urinary tract infection (Acute) Plan: Patient is a 82-year-old female with history of recurrent ovarian cancer currently on 6 line therapy with Toprol T can have he received cycle 1 day 1 on 10/31/2017 and the last on 11/08/2017 who presents with neutropenic fever in the setting of malignant partial bowel obstructions it has failed outpatient management. Problem #1 neutropenic fever secondary to polymicrobial bacteremia Source of patient's polymicrobial bacteremia is likely her GI tract which is been disturbed in the setting of chemotherapy and neutropenia. She also has ongoing malignant partial bowel obstruction which is also likely contributing. She is currently on broad-spectrum antibiotics. As mentioned she received Neulasta on 11/08/2017. From both a cancer and sepsis standpoint patient has a poor prognosis. I discussed with the patient and the family that this may be the appropriate time to transition to palliative/hospice care. Problem #2 recurrent ovarian cancer with malignant partial bowel obstruction Discussed with patient and family that she is likely not a candidate for continued treatment for her ovarian cancer. She is currently on 6th line therapy if not including adjuvant carboplatin and paclitaxel. There are no other safe systemic options for the patient at this time. Clearly she cannot tolerate Topotecan given admission with neutropenic fever after first cycle even when Neulasta was included. Strongly encouraged palliative care/hospice care. Problem #3 malignant bowel obstruction Patient has not had any CT changes when compared to CAT scan from 10/30/2017. He appears to be continuing to have bowel movements and pass flatus. Her obstruction was secondary to peritoneal disease she is currently on a liquid diet only. Would continue to manage conservatively depending on goals of care. Flynn Duarte
--- NOTE | 2017-11-11 16:28 | ASMTCMCOM ---
CM Note CM Note Notes: Chart reviewed. Prognosis poor. Hospice order noted. Met with family. They are uncertain if they may want inpatient versus taking the patient home. They are inquiring if an inpatient hospice is available in the [place] or [facility]. They are trying to arrange for a underground repairer to come and administer her last rights. I have offered to assist with this if they are having difficulties. Plan is for Hospice evaluation. CM to follow. Plan: TBD Date Signed: 11/11/2017 04:28 PM Electronically Signed By:Roxie Mixon RN
[2017-11-11] MEDS ORDERED: ACETAMINOPHEN 650 MG/20.3 ML UDCUP PO PRN (17:18)
[2017-11-11] MEDS: NS 1,000 ML IV SCH (18:28)
[2017-11-11] MEDS: ONDANSETRON 4 MG/2 ML VIAL IVP PRN (21:22)
[2017-11-11] MEDS: diphenhydrAMINE 12.5 MG/5 ML UDCUP PO PRN (21:45)
[2017-11-11] MEDS: SENNOSIDES/DOCUSATE SODIUM TAB PO SCH (21:45)
[2017-11-12] MEDS: PIPERACILLIN/TAZO 3.375 GM/DEX 50 ML IV SCH ×4 (00:25→20:17)
[2017-11-12] MEDS: NS 1,000 ML IV SCH ×2 (03:17→10:31)
[2017-11-12] MEDS: HYDROmorphone HCL 0.5 MG/0.5 ML SYR IVP PRN ×3 (04:58→15:58)
[2017-11-12] MEDS: oxyCODONE IR 5 MG TAB PO PRN ×2 (05:43→13:57)
[2017-11-12 06:02] LABS: PLATELET COUNT 17 10^3/uL (150-400)
[2017-11-12] MEDS: metFORMIN HCL 500 MG TAB PO SCH (08:59)
[2017-11-12] MEDS: SENNOSIDES/DOCUSATE SODIUM TAB PO SCH ×2 (08:59→20:12)
[2017-11-12] MEDS: ONDANSETRON 4 MG/2 ML VIAL IVP PRN (09:30)
--- NOTE | 2017-11-12 09:32 | HOSPPROG ---
Hospitalist Progress Note Assessment/Plan: #Neutropenic fever: polymicrobial from translocation from SBO or GB. Awaiting ID /sensitivities. Can see Lactobacillus with probiotics. IV Zosyn #Metastatic ovarian cancer: poor prognosis after several lines of treatment. Family agreeable to meeting with hospice #Partial SBO: no N/V, having BM. Followed by Dr. Geiger previously who rec possible colonic stenting. Very poor surgical candidate #Hypokalemia: repleting #Acute abd pain: PRN dilaudid #Hiccups: PRN Baclofen #Sepsis: elevated WBC, tachy and bacteremia. IV abx as above #HTR #Thrombocytopenia: no active bleeding #Hyponatremia, hypovolemic: IVFs #Diet: ADAT #DVt ppx: SCDs #Disp: inpatient admission for IV abx, fluids Additional 25 min spent on advanced planning with family/patient 10:15-10:40; discussing hospice,goals, advance directive Objective: Vital Signs Temp Pulse Resp BP Pulse Ox 37.3 C 104 H 16 120/61 96 11/12/17 08:00 11/12/17 08:00 11/12/17 04:00 11/12/17 04:00 11/12/17 08:00 Microbiology 11/11/17 05:25 Gastrointestinal Tract Panel (PCR) - Final Stool No Organism Detected Laboratory Results 11/12/17 05:09 11/12/17 05:09 11/11/17 11/12/17 11/13/17 05:59 05:59 05:59 Intake Total 600 1000 Output Total 400 425 400 Balance 200 575 -400 PT 13.5 SEC (12.0-15.0) 11/10/17 13:30 INR 1.01 (0.83-1.16) 11/10/17 13:30 ICD10 Worksheet Patient Problems: Problems Problem Status Onset Sepsis Acute Urinary tract infection Acute Bowel obstruction Acute Ovarian cancer Acute
--- NOTE | 2017-11-12 10:30 | ASMTCMCOM ---
CM Note CM Note Notes: Chart reviewed. Family trying to sort out plan of care. Agreeable to hospice. Referral in allscripts to [facility]. [place] to visit with family later this am. CM to follow. Plan: TBD Date Signed: 11/12/2017 10:25 AM Electronically Signed By:Roxie Mixon RN
[2017-11-12] MEDS: POTASSIUM Cl (KCl) 100 ML IV SCH ×3 (10:31→12:40)
--- NOTE | 2017-11-12 14:36 | SOAPPROG ---
SOAP Progress Note Assessment/Plan: Assessment/Plan: Patient is a 82-year-old female with history of recurrent ovarian cancer currently on 6 line therapy with Toprol T can have he received cycle 1 day 1 on 10/31/2017 and the last on 11/08/2017 who presents with neutropenic fever in the setting of malignant partial bowel obstructions that has failed outpatient management. Problem #1 neutropenic fever secondary to klebsiella bacteremia Source of patient's bacteremia is likely her GI tract which is been disturbed in the setting of chemotherapy and neutropenia. She also has ongoing malignant partial bowel obstruction which is also likely contributing. She is currently on broad-spectrum antibiotics. As mentioned she received Neulasta on 2017. From both a cancer and sepsis standpoint patient has a poor prognosis. I discussed with the patient and the family that this may be the appropriate time to transition to palliative/hospice care. Bacillus species likely contaminant from skin -continue antibiotics based on patient's goals, ID involved Problem #2 recurrent ovarian cancer with malignant partial bowel obstruction Not a candidate for continued therapy: she is currently on 6th line therapy - there are no other safe systemic options for the patient at this time. Clearly she cannot tolerate Topotecan given admission with neutropenic fever after first cycle even when Neulasta was included. -Strongly encouraged palliative care/hospice care. Problem #3 malignant bowel obstruction Patient has not had any CT changes when compared to CAT scan from 10/30/2017. She appears to be continuing to have bowel movements and pass flatus. Her obstruction was secondary to peritoneal disease - she is currently on a liquid diet only. -Would continue to manage conservatively depending on goals of care. Not a surgical candidate Flynn Duarte Subjective: patient reports feeling better than yesterday. Less fatigue, GI panel negative for c diff. She continues to have abdominal pain, mainly in left lower quadrant , had some transient feelings of being flushed and chilled. No CP or shortness of breath. Objective: Vital Signs Temp Pulse Resp BP Pulse Ox 37.7 C 108 H 20 125/55 H 93 11/12/17 12:28 11/12/17 12:28 11/12/17 12:28 11/12/17 12:28 11/12/17 12:28 Microbiology 11/11/17 05:25 Gastrointestinal Tract Panel (PCR) - Final Stool No Organism Detected Laboratory Results 11/12/17 05:09 11/12/17 05:09 11/11/17 11/12/17 11/13/17 05:59 05:59 05:59 Intake Total 600 1000 Output Total 400 425 400 Balance 200 575 -400 PT 13.5 SEC (12.0-15.0) 11/10/17 13:30 INR 1.01 (0.83-1.16) 11/10/17 13:30 Physical examination: Vital Signs reviewed General: chronically ill appearing female in no acute distress HEENT: Pupils are equal round and reactive to light no scleral icterus however conjunctival pallor is appreciated oral mucosa is moist without any evidence of oral pharyngeal lesions Cardiovascular: Tachycardic rate, regular rhythm with a 2 out of 6 systolic murmur best heard at the right upper sternal border and a 3 out of 6 systolic murmur best heard at the apex Chest: Clear to auscultation bilateral posterior lungs clear to percussion Abdomen: Soft, diffusely tender - more severe so in the left upper and left lower quadrant - with rebound tenderness no guarding Extremities: 2+ lower extremity edema pitting bilaterally intact peripheral pulses warm and well perfused Neurologic: Cranial nerves II through XII are grossly intact patient is somnolent but oriented to person place and time ICD10 Worksheet Patient Problems: Problems Problem Status Onset Sepsis Acute Urinary tract infection Acute Bowel obstruction Acute Ovarian cancer Acute
[2017-11-12] MEDS ORDERED: LIDOCAINE 2% JELLY 5 ML TUBE TP ONE (15:03)
--- NOTE | 2017-11-12 15:10 | ASMTCMCOM ---
CM Note CM Note Notes: Family met with Sharona Epps and Reynaldo Julien. They wish to proceed with GIP bed at [facility] and hospice Referral placed to [facility]. Physician aware of need to place order. Awaiting transportation setup per hospice. MD is aware of need for hard copy prescriptions. CM available should other needs arise.. Date Signed: 11/12/2017 03:09 PM Electronically Signed By:Roxie Mixon RN
[2017-11-12 15:46] VITALS: BP 144/70
--- NOTE | 2017-11-12 15:53 | GDS ---
DISCHARGE DIAGNOSES: 1. Recurrent ovarian cancer, on 6th line of therapy. 2. Neutropenic fever, secondary to Klebsiella bacteremia. 3. Malignant partial bowel obstruction. 4. Sepsis. 5. Hypokalemia. 6. Hiccups. 7. Hypertension. 8. Thrombocytopenia. 9. Hyponatremia. HISTORY OF PRESENT ILLNESS: An 82-year-old female with recurrent ovarian cancer on 6th line of thera py, presenting from home with fevers and chills. She was started on a new chemo therapy regimen a we ek and a half ago with Dr. Fang. Had an infusion last Friday, that went well and received G-CSF on Friday. Ever since then has not felt well with chills, fatigue, and lower abdominal pain. Had a t emperature of 100.5, so came to the ED. She reported some urinary frequency, but no pain or hematuri a. Was seen in the ED 10/30 for worsening abdominal distention and was found to have a partial large and small bowel obstruction. Dr. Geiger was a csm consultant and this was managed conservatively in the outpat ient setting. HOSPITAL COURSE: By problem: 1. Neutropenic fever: Secondary to Klebsiella bacteremia likely translocation from either small bow el obstruction or gallbladder. Infectious Disease was consulted and was treated with IV Zosyn. 2. Metastatic ovarian cancer: Poor prognosis given 6 lines of treatment, now with severe pancytopen ia. Family met with Hospice today and is agreeable to discharge to [facility] with Hospice. 3. Partial small-bowel obstruction: Control pain with Roxanol, p.r.n. Zofran. 4. Hypokalemia, was repleted. 5. Hiccups. These resolved. 6. Sepsis due to bacteremia. Plan as stated above. 7. Hypertension. Blood pressure is stable here. 8. Thrombocytopenia. No evidence of active bleeding. 9. Hypovolemic hyponatremia. This improved with IV fluids. DISPOSITION: Patient is stable for discharge to [facility] with Hospice. Prescriptions have been pr ovided. MEDICATIONS: Roxanol and Zofran. PHYSICAL EXAMINATION: VITAL SIGNS: Today, temperature 37.7, blood pressure 125/55, heart rate in th e 100s, respirations 20, 92% on 2 L. GENERAL: She is fatigued. No acute distress. HEENT: Dry muc ous membranes. CV: Tachy, but regular. LUNGS: Are clear. ABDOMEN: Soft, mildly distended. : Christianson in place. NEURO: 2 through 12 intact. PSYCH: Alert and oriented x3, but very lethargic. Time spent on discharge: Greater than 45 minutes at bedside with patient and family counseling on Ho spice, treatment plan and discharge planning with Case Management. /[id number]/MODL
--- NOTE | 2017-11-12 17:04 | HOSPPROG ---
Hospitalist Progress Note Assessment/Plan: Addendum to discharge: Plan to DC tomorrow morning with hospice. Comfort measures here this evening Objective: Vital Signs Temp Pulse Resp BP Pulse Ox 37.7 C 105 H 28 H 144/70 H 96 11/12/17 15:38 11/12/17 15:38 11/12/17 15:38 11/12/17 15:38 11/12/17 15:38 Microbiology 11/11/17 05:25 Gastrointestinal Tract Panel (PCR) - Final Stool No Organism Detected Laboratory Results 11/12/17 05:09 11/12/17 05:09 11/11/17 11/12/17 11/13/17 05:59 05:59 05:59 Intake Total 600 1000 Output Total 400 425 400 Balance 200 575 -400 PT 13.5 SEC (12.0-15.0) 11/10/17 13:30 INR 1.01 (0.83-1.16) 11/10/17 13:30 ICD10 Worksheet Patient Problems: Problems Problem Status Onset Sepsis Acute Urinary tract infection Acute Bowel obstruction Acute Ovarian cancer Acute
--- NOTE | 2017-11-12 17:08 | HOSPPROG ---
Hospitalist Progress Note Assessment/Plan: Neutropenic fever: polymicrobial from translocation from SBO or GB. Klebsiella bacteremia #Metastatic ovarian cancer: poor prognosis after several lines of treatment. Family agreeable to meeting with hospice -comfort measures here and DC tomorrow. Pain control with oxycodone, dialaudid #Partial SBO: no N/V, having BM. Followed by Dr. Geiger previously who rec possible colonic stenting. Very poor surgical candidate #Hypokalemia: repleting #Acute abd pain: PRN dilaudid #Hiccups: PRN Baclofen #Sepsis: elevated WBC, tachy and bacteremia. IV abx as above #HTR #Thrombocytopenia: no active bleeding #Hyponatremia, hypovolemic: IVFs #Diet: ADAT #DVt ppx: SCDs #Disp: DC tomorrow to [facility] with hospice Additional time spent: 30 min Face-to face time: bedside with patient and family discussing hospice, cor status; now DNR Subjective: fatigued this morning Objective: Vital Signs Temp Pulse Resp BP Pulse Ox 37.7 C 105 H 28 H 144/70 H 96 11/12/17 15:38 11/12/17 15:38 11/12/17 15:38 11/12/17 15:38 11/12/17 15:38 Microbiology 11/11/17 05:25 Gastrointestinal Tract Panel (PCR) - Final Stool No Organism Detected Laboratory Results 11/12/17 05:09 11/12/17 05:09 11/11/17 11/12/17 11/13/17 05:59 05:59 05:59 Intake Total 600 1000 Output Total 400 425 400 Balance 200 575 -400 PT 13.5 SEC (12.0-15.0) 11/10/17 13:30 INR 1.01 (0.83-1.16) 11/10/17 13:30 - Time Spent With Patient Time Spent with Patient: greater than 35 minutes Time Spent with Patient: Greater than 35 minutes spent on this patients care, greater than 50% of time spent counseling, educating, and coordinating care regarding the above mentioned plan. - Physical Exam Constitutional: other (lethargic) Eyes: PERRL Ears, Nose, Mouth, Throat: moist mucous membranes Cardiovascular: regular rate and rhythym Respiratory: reduced air movement Gastrointestinal: soft, non-tender abdomen, distension Genitourinary: no bladder fullness Skin: warm Musculoskeletal: generalized weakness Neurologic: CN II-XII Intact Psychiatric: flat affect ICD10 Worksheet Patient Problems: Problems Problem Status Onset Sepsis Acute Urinary tract infection Acute Bowel obstruction Acute Ovarian cancer Acute
[2017-11-12] MEDS: morphINE 10 MG/0.5 ML UDSYR PO PRN ×2 (22:42→23:41)
[2017-11-13] MEDS ORDERED: LORazepam 2 MG/ML INJ IVP PRN (00:31)
[2017-11-13] MEDS: PIPERACILLIN/TAZO 3.375 GM/DEX 50 ML IV SCH ×2 (02:38→08:43)
[2017-11-13] MEDS: NS 1,000 ML IV SCH (02:40)
--- NOTE | 2017-11-13 08:16 | PDIAF ---
- Diagnosis Diagnosis: Ovarian cancer. bacteremia Code Status: Do Not Resuscitate - Medication Management Discharge Medications: Medications to Continue on Transfer Herbals/Supplements -Info Only 1 ea PO DAILY 11/10/17 [Last Taken Unknown] Ondansetron Odt [Zofran Odt 4 mg (*)] 4 mg PO Q4HRS PRN #30 tab 11/12/17 [Last Taken Unknown] morphINE [Roxanol 10 mg/0.5 ml oral soln (*)] 5 - 10 mg PO Q4 #60 ml 11/12/17 [ Last Taken Unknown] Discharge Medications: Refer to the Discharge Home Medication list for PRN reason. - Orders Services needed: Registered Nurse Diet Recommendation: no restrictions on diet Diet Texture: Regular Texture Diet - Follow Up Care Current Providers and Referrals: Patient,NotPresent [Unknown] - As per Instructions
[2017-11-13] MEDS: SENNOSIDES/DOCUSATE SODIUM TAB PO SCH (08:43)
[2017-11-13] MEDS: morphINE 10 MG/0.5 ML UDSYR PO PRN (09:36)
--- NOTE | 2017-11-13 13:23 | GDS ---
Please see discharge summary dated 11/12/2017 for complete assessment and plan. She was planned for discharge yesterday to hospice, but arrangements had to be made, thus kept overnight. No acute barraza es in the past 24 hours. /[id number]/MODL
--- NOTE | 2017-11-13 17:17 | ASMTLACE ---
LACE Length of stay for Answers: 4-6 days current admission Acuity / Level of Answers: Yes Care: Did the patient have an inpatient admission? Comorbidities - select Answers: Any tumor (including all that apply lymphoma or leukemia) Diabetes (uncontrolled or controlled) Other Notes: HTN # of Emergency department Answers: 1-2 visits in the last 6 months Score: 12 Date Signed: 11/13/2017 05:16 PM Electronically Signed By:JACKIE Allen
--- NOTE | 2017-11-13 17:18 | ASMTDCNOTE ---
Case Management Discharge Discharge Order Complete? Answers: Yes Patient to Obtain Answers: Other Notes: [facility] Transportation Arranged Answers: [facility] will Pick (Date 11/13/2017 09:30 AM & Time) Case Management Transport Answers: Yes Form Complete Faxed Final Orders Answers: Yes Agency/Facility Transfer Answers: Yes Report Printed & Faxed to Receiving Agency Family Notified Answers: Yes Discharge Comments Notes: Pt discharged to [facility] today. Transportation arranged by . D/C meds, order, facility transfer sent via [employer]. Date Signed: 11/13/2017 05:18 PM Electronically Signed By:JACKIE Allen
--- NOTE | 2017-11-13 17:20 | ASDISCHSUM ---
Discharge Information Plan Status:Hospice-SNF Medically Cleared to Leave:11/13/2017 Discharge Date:11/13/2017 10:02 AM D/C Disposition:Fdc Facility ADT D/C Disposition:Fdc Facility Projected Discharge Date:11/13/2017 11:00 AM Transportation at D/C:ALS/BLS Discharge Delay Reason: Follow-Up Date:11/13/2017 11:00 AM Discharge Slot: Final Diagnosis: Placement Information Referral Type:*Hospice Referral ID:[id number] Provider Name:[facility] Address 1:[address] [place] [address] Phone Number: Address 2: Fax Number: [facility]:[place] Selection Factors: State:[place] Referral Type:*Long-Term/SNF Referral ID:[id number] Provider Name:[facility] Address 1:[address] Address 2: [facility]:[place] Selection Factors: State:[place] Patient Contact Information Contact Name:ZINA Relationship: Address:[address] Work Phone: [place] Phone: [facility]/Zip Code:[place] [address] Email: Financial Information Financial Class:Medicare Advantage Plans Primary Plan Desc:SADI PAT MEDICARE Primary Plan Number:[id number] Secondary Plan Desc: Secondary Plan Number: Assessment Information LACE LACE Length of stay for Answers: 4-6 days current admission Acuity / Level of Answers: Yes Care: Did the patient have an inpatient admission? Comorbidities - select Answers: Any tumor (including all that apply lymphoma or leukemia) Diabetes (uncontrolled or controlled) Other Notes: HTN # of Emergency department Answers: 1-2 visits in the last 6 months Score: 12 Date Signed: 11/13/2017 05:16 PM Electronically Signed By:JACKIE Allen [facility] Progress Note CM Note CM Note Notes: Chart reviewed. 82 year old female brought into the Ed via EMS with diarrhea and weakness. She has HX of ovarian cancer and recent chemo. Lives with and daughter. Needs to be determined. CM to follow. Plan: TBD Date Signed: 11/11/2017 09:35 AM Electronically Signed By:Roxie Mixon RN [facility] CM Progress Note CM Note CM Note Notes: Chart reviewed. Prognosis poor. Hospice order noted. Met with family. They are uncertain if they may want inpatient versus taking the patient home. They are inquiring if an inpatient hospice is available in the [place] or [facility]. They are trying to arrange for a assembler dielectric heater to come and administer her last rights. I have offered to assist with this if they are having difficulties. Plan is for Hospice evaluation. CM to follow. Plan: TBD Date Signed: 11/11/2017 04:28 PM Electronically Signed By:Roxie Mixon RN [facility] CM Progress Note CM Note CM Note Notes: Chart reviewed. Family trying to sort out plan of care. Agreeable to hospice. Referral in allscripts to [facility]. [place] to visit with family later this am. CM to follow. Plan: TBD Date Signed: 11/12/2017 10:25 AM Electronically Signed By:Roxie Mixon RN [facility] CM Progress Note CM Note CM Note Notes: Family met with Sharona Epps and Reynaldo Julien. They wish to proceed with GIP bed at [facility] and hospice Referral placed to [facility]. Physician aware of need to place order. Awaiting transportation setup per hospice. MD is aware of need for hard copy prescriptions. CM available should other needs arise.. Date Signed: 11/12/2017 03:09 PM Electronically Signed By:Roxie Mixon RN Case Management Discharge Plan Note Case Management Discharge Discharge Order Complete? Answers: Yes Patient to Obtain Answers: Other Notes: [facility] Medications Transportation Arranged Answers: [facility] will Pick (Date 11/13/2017 09:30 AM & Time) Case Management Transport Answers: Yes Form Complete Faxed Final Orders Answers: Yes Agency/Facility Transfer Answers: Yes Report Printed & Faxed to Receiving Agency Family Notified Answers: Yes Discharge Comments Notes: Pt discharged to [facility] today. Transportation arranged by [facility]. [facility] meds, order, facility transfer sent via [employer]. Date Signed: 11/13/2017 05:18 PM Electronically Signed By:JACKIE Allen Intervention Information
== END 2017-11-13 10:02 | disposition hospice, home (50) | DRG 871 ==
LOC: EDUNIT# → OBSVTOIN 15:01 → F1N 16:17
PROVIDERS: ADMIT Internal Medicine; ATTEND Internal Medicine
DX: A41.89 Other specified sepsis (principal); B96.1 Klebsiella pneumoniae [K. pneumoniae] as the cause of diseases classified elsewhere; D70.9 Neutropenia, unspecified; K56.600 Partial intestinal obstruction, unspecified as to cause; D61.810 Antineoplastic chemotherapy induced pancytopenia; N39.0 Urinary tract infection, site not specified; C56.9 Malignant neoplasm of unspecified ovary; C78.6 Secondary malignant neoplasm of retroperitoneum and peritoneum; E87.6 Hypokalemia; E87.1 Hypo-osmolality and hyponatremia; E11.9 Type 2 diabetes mellitus without complications; R06.6 Hiccough; I10 Essential (primary) hypertension
CPT/HCPCS: J0692; J1170; J2060; J2185; J2405; J2543; J3370; J3480